=== PATIENT | female | born 1970 | race Native Hawaiian/Other Pacific Islander ===

== ENCOUNTER 2017-02-06 16:40 | Outpatient (CLI) | payer OTHER ==
[~2017-02-06 16:40] MED LIST: ACET-689 PO; AZOR1 TAB PO; FURO20TA67 PO; FURO40TA93 PO; MEDROL DOSEPAK4 MG OR; METOPROLOL25 M1 OR; PRINIVIL10 MG OR; VIMOVO1 TA1 OR
== END 2017-02-06 19:10 | disposition home or self-care (01) ==
LOC: LAB 16:40 → CT 16:40
DX: N39.0 Urinary tract infection, site not specified (principal); M54.89 Other dorsalgia; R19.09 Other intra-abdominal and pelvic swelling, mass and lump
CPT/HCPCS: 81000; 87077; 87086; 87088; 87186

== ENCOUNTER 2017-02-06 20:31 | Emergency (ER) | payer OTHER ==
[~2017-02-06] VITALS: Ht 165.1 cm; Wt 154.2 kg
[2017-02-06 21:16] LABS: PLATELET COUNT 360 K/uL (152-353)
[2017-02-06 21:26] LABS: POTASSIUM 3.7 mmol/L (3.6-5.2); SODIUM 135 mmol/L (136-145)
[2017-02-07 01:11] VITALS: BP 143/82; TEMP 98.6
== END 2017-02-07 01:12 | disposition home or self-care (01) ==
LOC: ED 20:31
PROVIDERS: Emergency Medicine
DX: N39.0 Urinary tract infection, site not specified (principal); N30.01 Acute cystitis with hematuria; N83.202 Unspecified ovarian cyst, left side; N83.201 Unspecified ovarian cyst, right side
CPT/HCPCS: 36415; 80053; 82150; 83690; 85027; 96365; 96375; 99284; J0744; J1885; J2270; J2405; Q9963

== ENCOUNTER 2017-02-20 07:19 | Outpatient (CLI) | payer BC | END 2017-02-20 19:30 | LOC: RESP 07:19 | DX: D39.11 Neoplasm of uncertain behavior of right ovary (principal); D39.12 Neoplasm of uncertain behavior of left ovary; Z01.818 Encounter for other preprocedural examination | CPT/HCPCS: 93005 ==

== ENCOUNTER 2017-05-03 14:07 | Outpatient (CLI) | payer OTHER ==
[2017-05-03 14:32] LABS: PLATELET COUNT 323 K/uL (152-353)
[2017-05-03 15:07] LABS: POTASSIUM 4.6 mmol/L (3.6-5.2); SODIUM 133 mmol/L (136-145)
== END 2017-05-03 18:58 | disposition home or self-care (01) ==
LOC: LAB 14:07
PROVIDERS: Family Medicine
DX: E11.9 Type 2 diabetes mellitus without complications (principal); I10 Essential (primary) hypertension; E66.8 Other obesity; J32.8 Other chronic sinusitis; E55.9 Vitamin D deficiency, unspecified
CPT/HCPCS: 80053; 80061; 82043; 82570; 82652; 83036; 83735; 84439; 84443; 84550; 85027

== ENCOUNTER 2017-11-21 07:53 | Outpatient (CLI) | payer OTHER | END 2017-11-21 19:11 | disposition home or self-care (01) | LOC: MRI 07:53 | DX: M54.5 Low back pain (principal); M46.1 Sacroiliitis, not elsewhere classified; M54.16 Radiculopathy, lumbar region ==

== ENCOUNTER 2018-03-06 13:20 | Outpatient (CLI) | payer OTHER ==
[2018-03-06 15:24] LABS: PLATELET COUNT 316 K/uL (152-353)
[2018-03-06 17:00] LABS: POTASSIUM 4.5 mmol/L (3.6-5.2)
== END 2018-03-06 21:25 | disposition home or self-care (01) ==
LOC: LAB 13:20
PROVIDERS: Nurse Practitioner Family
DX: E11.9 Type 2 diabetes mellitus without complications (principal); I10 Essential (primary) hypertension; R53.82 Chronic fatigue, unspecified; R53.81 Other malaise
CPT/HCPCS: 80053; 80061; 83036; 84436; 84443; 85027

== ENCOUNTER 2018-03-26 08:49 | Emergency (ER) | payer OTHER ==
[2018-03-26 08:51] VITALS: TEMP 98.5
[2018-03-26 10:10] VITALS: BP 173/99
== END 2018-03-26 10:11 | disposition home or self-care (01) ==
LOC: ED 08:49
DX: I88.9 Nonspecific lymphadenitis, unspecified (principal); H60.92 Unspecified otitis externa, left ear
CPT/HCPCS: 99282

== ENCOUNTER 2018-05-10 05:53 | Emergency (ER) | payer OTHER ==
[~2018-05-10] VITALS: Ht 165.1 cm; Wt 136.1 kg
[2018-05-10 06:52] VITALS: BP 165/134; TEMP 98.3
== END 2018-05-10 06:52 | disposition home or self-care (01) ==
LOC: ED 05:53
DX: S40.022A Contusion of left upper arm, initial encounter (principal); S60.222A Contusion of left hand, initial encounter; S40.012A Contusion of left shoulder, initial encounter; Y00.XXXA Assault by blunt object, initial encounter; Y93.89 Activity, other specified; Y92.238 Other place in hospital as the place of occurrence of the external cause; Y99.0 Civilian activity done for income or pay
CPT/HCPCS: 99282

== ENCOUNTER 2022-09-18 20:29 | Emergency (ER) | payer OTHER ==
[~2022-09-18] VITALS: Ht 165.1 cm; Wt 124.7 kg
[2022-09-18 20:36] VITALS: BP 166/99; TEMP 98.5
== END 2022-09-18 21:40 | disposition home or self-care (01) ==
LOC: ED 20:29
DX: B34.9 Viral infection, unspecified (principal); J20.9 Acute bronchitis, unspecified; Z20.822 Contact with and (suspected) exposure to COVID-19
CPT/HCPCS: 87502; 87635; 87651; 99282; U0003